=== PATIENT | female | born 1975 | race Caucasian/White ===

== ENCOUNTER → 2016-08-05 | Outpatient (CLI) | payer OTHER ==
[~2016-08-05] MED LIST: ACET-1256 PO; CALC500C70 PO; CHOL2000 PO; CLR10 PO; CYAN500T PO; DOCU100C31 PO; FERR1TAB61 PO; MAGN250T3 PO; MULT-1018 PO; MULT-506 PO; OXYC-57 PO; TOPI100T20 PO
== END | disposition home or self-care (01) ==
LOC: C.PATHSPEC 15:55
PROVIDERS: ATTEND Family Medicine
DX: Z12.4 Encounter for screening for malignant neoplasm of cervix (principal)

== ENCOUNTER → 2016-10-21 | Outpatient (CLI) | payer OTHER | END | disposition home or self-care (01) | LOC: C.PATHSPEC 17:28 | PROVIDERS: ATTEND Obstetrics & Gynecology | DX: N93.8 Other specified abnormal uterine and vaginal bleeding (principal) ==

== ENCOUNTER 2016-11-23 05:52 | Observation (INO) | payer OTHER ==
[2016-10-30 15:40] LABS: BASO % 0.4 %; BASO ABS # 0.02 K/uL (0-0.2); COMPLETE YES; EOS % 1.3 %; HEMATOCRIT 38.4 % (37-47); IG% 0.2 %; LYMPH % 35.2 %; LYMPH ABS # 1.67 K/uL (1.2-3.4); MEAN CELL VOLUME 94.8 fL (80-100); MEAN CORPUSCULAR HEMOGLOBIN 31.1 pg (25-34); MEAN CORPUSCULAR HGB CONC 32.8 g/dl (32-36); MEAN PLATELET VOLUME 10.2 fL (7.4-10.4); NEUT % 55.9 %; PLATELET COUNT 255 K/uL (130-400); RED BLOOD COUNT 4.05 M/uL (4.2-5.4); WHITE BLOOD COUNT 4.74 K/uL (4.8-10.8)
[2016-10-30 15:51] LABS: BLOOD UREA NITROGEN 11 mg/dl (7-18); BUN/CREATININE RATIO 18.1 (10-20); CALCIUM 8.6 mg/dl (8.5-10.1); CARBON DIOXIDE 27 mmol/L (21-32); CHLORIDE 109 mmol/L (98-107); CREATININE 0.63 mg/dl (0.60-1.20); GLUCOSE 83 mg/dl (70-99); POTASSIUM 3.6 mmol/L (3.5-5.1); SODIUM 142 mmol/L (136-145)
[2016-11-23] VITALS (8 sets, daily range): BP systolic 108–130; BP diastolic 66–76; PULSE 46–64; TEMP 36.3–37.2; O2SAT 99–100; Ht 154.9 cm; Wt 73.6 kg
[~2016-11-23] VITALS: Ht 154.9 cm; Wt 73.6 kg
[~2016-11-23 05:52] MED LIST changes: -OXYC-57 PO
[2016-11-23] MEDS ORDERED: LACTATED RINGER'S 1000ML 1,000 ML IV SCH ×3 (06:00→09:15)
[2016-11-23] MEDS ORDERED: CEFAZOLIN 2000 MG/60 ML D5W 50 ML IV SCH (06:00)
[2016-11-23] MEDS ORDERED: FENTANYL CITRATE INJ 50 MCG/1 ML 2 ML VIAL ONE ×3 (06:51→08:24)
[2016-11-23] MEDS ORDERED: ONDANSETRON INJ 2 MG/ML 2 ML VIAL ONE ×2 (06:51→06:54)
[2016-11-23] MEDS ORDERED: ROCURONIUM BROMIDE 10 MG/ML 5 ML VIAL ONE (06:51)
[2016-11-23] MEDS ORDERED: PROPOFOL IV EMULSION 10 MG/ML 20 ML VIAL IV ONE (06:51)
[2016-11-23] MEDS ORDERED: DEXAMETHASONE SOD INJ 4 MG/ML VIAL ONE (06:51)
[2016-11-23] MEDS ORDERED: GLYCOPYRROLATE INJ 0.2 MG/ML VIAL ONE ×2 (06:51→06:54)
[2016-11-23] MEDS ORDERED: MIDAZOLAM HCL 1 MG/ML 2ML VIAL ONE (06:51)
[2016-11-23] MEDS ORDERED: NEOSTIGMINE METHYLSULFATE 5 MG/5 ML SYR ONE (06:51)
[2016-11-23] MEDS ORDERED: LIDOCAINE HCL 2% 2 ML VIAL (20MG/ML) ONE ×2 (06:51→06:54)
[2016-11-23 06:56] LABS: PREG INTERNAL NEGATIVE QC NEG CLEAR BACKGROUND; PREG INTERNAL POSITIVE QC POS CONTROL LINE
[2016-11-23] MEDS ORDERED: METHYLENE BLUE 0.5% 10 ML VIAL ONE (06:59)
[2016-11-23] MEDS ORDERED: BUPIVACAINE 0.5 % 5 MG/1 ML MPF 30ML VIAL ONE (07:00)
[2016-11-23] MEDS ORDERED: LACTATED RINGER'S 1000ML 1,000 ML IV PRN (07:10)
--- NOTE | 2016-11-23 07:10 | History & Physical Bridge Note ---
H&P Re-Evaluation Bridge Note: I have examined the patient, reviewed the History & Physical and in the interval since the performance of the History & Physical I have noted the following changes of clinical significance: No changes noted
[2016-11-23] MEDS ORDERED: ONDANSETRON INJ 2 MG/ML 2 ML VIAL IV PRN ×2 (07:15→09:15)
[2016-11-23] MEDS ORDERED: HYDROmorphone INJ 1 MG/ML SYR IV PRN (07:15)
[2016-11-23] MEDS ORDERED: KETOROLAC TROMETHAMINE 30 MG/ML VIAL IV. PRN ×2 (07:15→09:15)
[2016-11-23] MEDS ORDERED: DiphenhydrAMINE HCL 50 MG/ML VIAL IV PRN (07:15)
[2016-11-23] MEDS ORDERED: SCOPOLAMINE 1.5 MG TDSY TD ONE (07:18)
[2016-11-23] MEDS ORDERED: METOCLOPRAMIDE HCL INJ 5 MG/ML 2 ML VIAL ONE (07:32)
[2016-11-23] MEDS ORDERED: DiphenhydrAMINE HCL 50 MG/ML VIAL ONE (07:32)
[2016-11-23] MEDS ORDERED: EpHEDrine SULFATE 50MG/5ML SYR ONE (08:02)
[2016-11-23] MEDS ORDERED: LABETALOL HCL IV 5 MG/ML 20ML IV ONE (08:36)
[2016-11-23] MEDS ORDERED: OXYC-57 PO (09:13)
--- NOTE | 2016-11-23 09:13 | Discharge Instructions ---
Discharge Instructions Date of Service Nov 23, 2016. Visit Reason for Visit: Dysfunctional Uterine Bleeding Discharge Discharge Diagnosis / Problem: Hysterectomy Discharge Goals Goal(s): Specific goals Activity Recommendations Activity Limitations: per Instructions/Follow-up section Anesthesia . Post Anesthesia Instructions: If you have had General Anesthesia or IV Sedation: * Do not drive today. * Resume driving when surgeon permits. * Do not make important decisions or sign legal documents today. * Call surgeon for: 1. Temperature elevations greater than 101 degrees F. 2. Uncontrollable pain. 3. Excessive bleeding. 4. Persistent nausea and vomiting. 5. Medication intolerance (nausea, vomiting or rash). * For nausea and vomiting use only clear liquids such as: tea, soda, bouillon until nausea subsides, then gradually increase diet as tolerated. * If you have any concerns or questions, call your surgeon's office. If physician is unavailable and it is an emergency, call 911 or go to the nearest emergency room. . Instructions / Follow-Up Instructions / Follow-Up POST OPERATIVE: BOWEL FUNCTION/MEDICATIONS: 1. Constipation pain and discomfort are the most common complaints 5-7 days after surgery. Points 2-6 address the things that can help. 2. Chewing gum can help stimulate the gut and help improve digestion and motility. 3. Milk of Magnesia 1-2 times per day until return of bowel function. 4. Colace is a stool softener that helps. Taking this 2-3 times per day until bowel function returns to normal is highly recommended. 5. Dulcolax is a laxative that may be used if several days have passed without a bowel movement. Alternatively Miralax may be used daily instead. 6. Drink plenty of fluids as this will also reduce constipation. 7. Narcotic pain medications will be prescribed by your physician. They are safe to use and we encourage you to use them. If you are not allergic, ibuprofen will also be prescribed. Many patients will be able to transition off of the narcotic medications to ibuprofen by postoperative day 3. ACTIVITY RECOMMENDATIONS: 1. Get plenty of rest and listen to your body. If you are tired, take a nap. 2. You may shower, but do not take a tub bath until you see your doctor at the 2 week post operative visit. 3. Absolutely NO intercourse and nothing in the vagina until you are examined by your doctor at the 6 week visit. At that visit it will be determined when such activities can be resumed. This can range from 6-12 weeks after your surgery depending on healing time. 4. The main physical activity in the first week should be walking. By the second week you can slowly increase activity. There are no limits on walking up and down stairs. 5. Do not lift more than 5-10 lbs for 4 weeks. Remember the "one-handed rule", i.e. if you can lift something with only one hand it's likely okay. 6. 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 "Overdoing it" can lead to incisions not healing, pain and vaginal bleeding , so again, listen to your body. 7. Driving can be resumed when you feel able. Do not drive within 24 hours of taking a narcotic medication. EXPECTATIONS: 1. Vaginal spotting, bleeding and discharge are common after surgery. There may even be an odor to the discharge which is often related to sutures used in the vagina. If you experience heavy vaginal bleeding, call the office number day or night [phone]. 2. Bladder discomfort is common after surgery from the catheter. This usually resolves in 1-2 weeks. 3. By the end of the 3rd or 4th week you should be feeling much better. It may take up to 6 weeks for your energy levels to return to normal. 4. Narcotic medications have side effects such as: dizziness, headache, nausea and/or vomiting. If you suspect your pain medication is causing problems, call our office and we may be able to prescribe an alternate medication. 5. The skin incisions are often covered with a liquid bandage. This will gradually peel off over time. CALL THE OFFICE IF YOU HAVE ANY OF THE FOLLOWIN. Temperature of 101 degrees or higher. 2. Severe abdominal or pelvic pain not relieved by pain medication. 3. Persistent nausea or vomiting. 4. Increased pain with urination or difficulty urinating. 5. Bright red bleeding that soaks more than 1 pad per hour. CONTACT PHONE NUMBERS: Main Office: [phone] Surgical Nurse: [phone] extension [phone] FOLLOW-UP: Post-Operative Appointments: * Individual instructions will have been given about the timing of your first examination, but this is usually at the end of the second week home. * You will need to call the office at soon after discharge to make the appointment for your post-op check-up if it has not already been scheduled. * Additional information regarding activity, sexual intercourse and when to return to work will be given at this appointment. WE WISH YOU A SPEEDY RECOVERY! Diet Recommendations Recommended Home Diet: resume previous diet Procedures Procedures Performed: Robotic Assisted Laparoscopic Bilateral Salpingectomy,Hysterectomy and Cystoscopy Pending Studies Studies pending at discharge: no Medical Emergencies . Who to Call and When: Medical Emergencies: If at any time you feel your situation is an emergency, please call 911 immediately. . Non-Emergent Contact Non-Emergency issues call your: Primary Care Provider . . "Provider Documentation" section prepared by Carli Kamara. .
[2016-11-23] MEDS ORDERED: MEPERIDINE HCL 50 MG/ML CARP IV PRN ×2 (09:15)
[2016-11-23] MEDS ORDERED: SIMETHICONE 80 MG CHEW PO PRN (09:15)
[2016-11-23] MEDS ORDERED: PROMETHAZINE HCL INJ 12.5 MG in SODIUM CHLORIDE 0.9% 50ML 50 ML IV PRN (09:15)
[2016-11-23] MEDS ORDERED: OXYCODONE/ACETAMINOPHEN 5-325 TAB PO PRN ×2 (09:15)
[2016-11-23] MEDS ORDERED: ACETAMINOPHEN 325 MG TAB PO PRN (09:15)
[2016-11-23] MEDS ORDERED: PROMETHAZINE HCL INJ 25 MG in SODIUM CHLORIDE 0.9% 50ML 50 ML IV PRN (09:15)
[2016-11-23] MEDS ORDERED: IBUPROFEN 600 MG TAB PO PRN (09:15)
[2016-11-23] MEDS: FENTANYL CITRATE INJ 50 MCG/1 ML 2 ML VIAL IV PRN ×2 (09:25→09:35)
--- NOTE | 2016-11-23 09:49 | Anesthesiology Progress Note ---
Anesthesia Post Op Note Date & Time Nov 23, 2016 at 09:48 Vital Signs Pain Intensity: 4 Vital Signs Past 12 Hours Date Time Temp Pulse Resp B/P Pulse Ox O2 Delivery O2 Flow Rate FiO2 11/23/16 09:35 48 13 116/59 100 Mask 10 11/23/16 09:25 48 12 110/51 100 Mask 10 11/23/16 09:16 36.2 76 14 103/53 100 Mask 10 11/23/16 06:24 36.8 58 16 112/66 100 Room Air Notes Mental Status: alert / awake / arousable, participated in evaluation Pt Amnestic to Procedure: Yes Nausea / Vomiting: adequately controlled Pain: adequately controlled Airway Patency, RR, SpO2: stable & adequate BP & HR: stable & adequate Hydration State: stable & adequate Anesthetic Complications: no major complications apparent Pt doing well.
[2016-11-23] MEDS ORDERED: IV FLUIDS COMPLETED PRN (10:00)
--- NOTE | 2016-11-23 11:16 | [facility] Post Operative Brief Note ---
Immediate Operative Summary Operative Date Nov 23, 2016. Pre-Operative Diagnosis Dysfunctional Uterine Bleeding Post-Operative Diagnosis Dysfunctional Uterine Bleeding Procedure(s) Performed Robotic Assisted Laparoscopic Bilateral Salpingectomy,Hysterectomy and Cystoscopy Surgeon Dr. Carli Kamara Tuber Machine Operator Helper Surgeon(s) Dr. Stephie Serrano Estimated Blood Loss 5 ml Findings normal tubes, ovaries, enlarged uterus. Specimens Permanent Specimen A: Uterus, cervix, and bilateral Fallopian tubes Complication(s) None Disposition Recovery Room / PACU
--- NOTE | 2016-11-23 11:48 | OPERATIVE REPORT ---
DATE OF OPERATION: 11/23/2016 PREOPERATIVE DIAGNOSIS: Dysfunctional uterine bleeding. POSTOPERATIVE DIAGNOSIS: Same. PROCEDURE: Robotic-assisted laparoscopic bilateral salpingectomy, hysterectomy and cystoscopy. SURGEON: Dr. Kamara. COFFIN MAKER: Dr. Serrano. ESTIMATED BLOOD LOSS: 5 mL. FINDINGS: Normal tubes, ovaries and enlarged uterus. SPECIMENS: Uterus, cervix and bilateral fallopian tubes. COMPLICATIONS: None. DISPOSITION: Stable to recovery room. DESCRIPTION: Yudi Colorado was placed on the table in the dorsal lithotomy position with Yellofin stirrups, prepped and draped in standard sterile fashion and a hard time-out was taken prior to proceeding. A Black was placed. The uterus was sounded to 10 cm and a VCare was placed with the usual care. Attention was then turned to the abdomen where a supraumbilical incision was made, and the optical entry to the abdomen was made without complication. The abdomen was insufflated with CO2 gas and then under direct visualization in steep Trendelenburg position right and left lower quadrant ports were placed. The robot was then docked and surgery began. Dissection of the fallopian tubes off the mesosalpinx was first followed by dissection of the uteroovarian ligaments and ligation and division of the round ligament as well. The uterine arteries were skeletonized by creation of a bladder flap and dissection of the posterior peritoneum. Uterine arteries were ligated and divided bilaterally and then colpotomy was completed circumferentially. The uterus, cervix and tubes were delivered en bloc through the vagina. A V-Loc suture was then used to close the vaginal cuff in the usual running nonlocked manner after which the suction irrigation revealed good hemostasis at all working sites. Methylene blue dye was administered and cystoscopy revealed a strong blue stained jet of dye from each ureteral orifice. The bladder was then fully drained and abdominal closure was completed with UR-6 at the fascial layer of the umbilicus, 4-0 Monocryl at each incision and a Dermabond dressing. The patient was then transferred in stable condition to the PACU. I attest to the content of the Intraoperative Record and any orders documented therein. Any exceptio ns are noted below.
--- NOTE | 2016-11-23 16:45 | Progress Note ---
Progress Note Date of Service Nov 23, 2016. Progress Note Patient Luz Colorado was admitted to [facility] under my care for a major gynecological surgery on 11/23/16. She was discharged from hospital in the evening on that same date. Her fiancee was required to be here to assist her as she was not able / allowed to drive home postoperatively. Luz will require two weeks off of work as she will have lifting restrictions during that time. Pending satisfactory post-op checkup at two weeks, she will be cleared to return to work thereafter.
[2016-11-23] MEDS ORDERED: DOCUSATE SODIUM 100 MG CAP PO SCH (21:00)
--- NOTE | 2016-12-04 14:08 | HISTORY & PHYSICAL EXAMINATION ---
DATE OF ADMISSION: 11/23/2016 REASON FOR SURGERY: Menorrhagia. HISTORY OF PRESENT ILLNESS: A 41-year-old G5, 4-0-1-4 with 3 C-sections, 1 vaginal delivery and 1 SAB. The patient was sent to my care for heavy and frequent menses occurring since 2009. The patient had previously failed several treatment options including IUD, control pills and NSAIDS. At this time, the patient is requesting definitive treatment by hysterectomy. PAST MEDICAL HISTORY: Anxiety, depression, fatty liver disease, asthma, diabetes, GERD, hyperlipidemia and pneumonia as well as migraines. PAST SURGICAL HISTORY: Gastric bypass and section x3. FAMILY HISTORY: Notable for a grandparent with breast cancer and prostate cancer. She denies any colon or ovarian cancers. SOCIAL HISTORY: This is a single female with half pack per day smoking. No recreational drug use and rare alcohol use. CURRENT MEDICATIONS: Tylenol as needed, multivitamins, docusate 1 capsule twice daily, loratadine 10 mg daily, MiraLax daily, topiramate 100 mg p.o. b.i.d. ALLERGIES: TYLENOL #3. PHYSICAL EXAMINATION: VITAL SIGNS: BMI of 31, blood pressure 132/76. GENERAL: Alert and in no acute distress. HEART: Normal. LUNGS: Normal. ABDOMEN: Was with evidence of prior significant weight loss showing skin laxity and significant stretch mohan. GENITOURINARY EXAMINATION: Showed an enlarged 9-10 week uterus which was mobile and nontender and normal adnexa. ASSESSMENT: Perimenopausal female with heavy frequent cycles failed conservative management and desires definitive treatment. Ultrasound endometrial biopsy and thyroid and CBC labs will be done as part of her preoperative workup and the patient was to present for surgery on 11/23/2016.
== END 2016-11-23 18:00 | disposition home or self-care (01) ==
LOC: C.ACU 05:52 → C.MS4N 06:10
PROVIDERS: ADMIT Obstetrics & Gynecology; ATTEND Obstetrics & Gynecology
DX: N93.8 Other specified abnormal uterine and vaginal bleeding (principal); D25.2 Subserosal leiomyoma of uterus; N80.0 Endometriosis of uterus; J45.909 Unspecified asthma, uncomplicated; E11.9 Type 2 diabetes mellitus without complications; F17.200 Nicotine dependence, unspecified, uncomplicated; Z88.5 Allergy status to narcotic agent; Z98.84 Bariatric surgery status; E66.9 Obesity, unspecified; Z68.30 Body mass index [BMI] 30.0-30.9, adult
CPT/HCPCS: 58542; S2900

== ENCOUNTER → 2017-08-17 | Outpatient (CLI) | payer OTHER ==
[2017-08-17 18:15] LABS: BASO % 0.3 %; BASO ABS # 0.02 K/uL (0-0.2); EOS % 0.7 %; EOS ABS # 0.04 K/uL (0-0.5); HEMATOCRIT 42.1 % (37-47); HEMOGLOBIN 13.9 g/dL (12.0-16.0); IG# 0.01 K/uL (0.00-0.02); LYMPH % 28.9 %; LYMPH ABS # 1.71 K/uL (1.2-3.4); MEAN CELL VOLUME 93.3 fL (80-100); MEAN CORPUSCULAR HEMOGLOBIN 30.8 pg (25-34); MEAN PLATELET VOLUME 10.2 fL (7.4-10.4); MONO % 8.6 %; MONO ABS # 0.51 K/uL (0.11-0.59); NEUT % 61.3 %; NEUT ABS # 3.62 K/uL (1.4-6.5); PLATELET COUNT 277 K/uL (130-400); RED CELL DISTRIBUTION WIDTH CV 13.4 % (11.5-14.5); RED CELL DISTRIBUTION WIDTH SD 45.7 fL (36.4-46.3); WHITE BLOOD COUNT 5.91 K/uL (4.8-10.8)
[2017-08-17 18:26] LABS: ALBUMIN 3.6 gm/dl (3.4-5.0); ALT/SGPT 24 U/L (12-78); AST/SGOT 18 U/L (15-37); BLOOD UREA NITROGEN 10 mg/dl (7-18); CALCIUM 8.8 mg/dl (8.5-10.1); CARBON DIOXIDE 21 mmol/L (21-32); CREATININE 0.74 mg/dl (0.60-1.20); GLUCOSE 77 mg/dl (70-99); POTASSIUM 3.4 mmol/L (3.5-5.1); SODIUM 139 mmol/L (136-145)
[2017-08-17 18:32] LABS: ALKALINE PHOSPHATASE 76 U/L (45-117); TOTAL PROTEIN 7.1 gm/dl (6.4-8.2)
== END | disposition home or self-care (01) ==
LOC: C.LABMFLN 13:52
PROVIDERS: ATTEND Family Medicine
DX: N93.8 Other specified abnormal uterine and vaginal bleeding (principal); E55.9 Vitamin D deficiency, unspecified; K90.9 Intestinal malabsorption, unspecified; E61.1 Iron deficiency